=== PATIENT | male | born 1990 | race Hispanic/Latino ===

== ENCOUNTER → 2023-07-09 | Emergency (ER) | payer OTHER ==
[~2023-07-09] VITALS: Ht 170.2 cm; Wt 108.9 kg
[2023-07-09 19:22] VITALS: BP 199/143; PULSE 96; RESP 20
== END ==
LOC: EDH 17:49
DX: F41.0 Panic disorder [episodic paroxysmal anxiety] (principal); Z53.21 Procedure and treatment not carried out due to patient leaving prior to being seen by health care provider
CPT/HCPCS: 99281